=== PATIENT | female | born 1965 | race Caucasian/White ===

== ENCOUNTER 2020-03-30 20:34 | Emergency (ER) | payer OTHER ==
[~2020-03-30] VITALS: Ht 154.9 cm; Wt 81.7 kg
--- NOTE | ~2020-03-30 | EKG ---
[facility] [place] [address] ELECTROCARDIOGRAM REPORT Name: SARAH AWAD Room #: PRE M.R.#: [id number] Admission: Attend Phys: Discharge: Date of : 69 Report #: [id number] THIS REPORT FOR: cc: Parker Canales MD ~ THIS REPORT FOR: //name// [facility] ED Test Date: 2020-03-30 Test Time: 20:43:44 Pat Name: SARAHBERNIE AWAD Department: Room: Gender: F Adult Literacy Teacher: ALEXUS : 1965 Requested By: Jose Francisco Kern Order Number: [id number] MD: Measurements Intervals [place] Rate: 84 P: 51 [place]: 145 QRS: 41 QRSD: 98 T: 51 QT: 362 QTc: 428 Interpretive Statements Sinus rhythm RSR' in V1 or V2, right VCD or RVH Baseline wander in lead(s) V1 No previous ECG available for comparison [email or web address] By: 42 42 Parker Canales MD /EPI
[2020-03-30] MEDS ORDERED: FLUTICASONE PRO16 GM INH (21:50)
[2020-03-30] MEDS ORDERED: LEVOTHYROXINE125 MCG PO (21:50)
[2020-03-30] MEDS ORDERED: DIETHYLPROPION25 MG PO (21:50)
[2020-03-30 21:54] LABS: ABSOLUTE NEUTROPHILS 4.9 thou/uL (1.4-8.2); BASOPHILS 0.6 % (0.0-2.0); EOSINOPHILS 2.8 % (0.0-3.0); HEMATOCRIT 42.3 % (37.0-47.0); HEMOGLOBIN 14.1 gm/dL (12.0-15.0); LYMPHOCYTES 29.1 % (24.0-44.0); MCH 30.8 pg (26.0-34.0); MCHC 33.4 g/dL (28.0-37.0); MCV 92.3 fL (80.0-100.0); MONOCYTES 6.6 % (1.0-8.0); PLATELET COUNT 244 thou/uL (150-400); POLYS 60.9 % (36.0-66.0); RBC 4.59 mil/uL (4.20-5.00); RDW 13.4 % (10.5-14.5); WBC 8.1 thou/uL (4.0-11.0)
[2020-03-30 21:55] LABS: ANION GAP 8 mmol/L (7-16); BUN 20 mg/dL (7-18); CALCIUM 8.8 mg/dL (8.5-10.1); CHLORIDE 101 mmol/L (98-107); CO2 27 mmol/L (21-32); CREATININE 0.9 mg/dL (0.6-1.0); GLUCOSE 99 mg/dL (74-106); POTASSIUM 4.2 mmol/L (3.5-5.1); SODIUM 136 mmol/L (136-145)
[2020-03-30 22:05] LABS: ALBUMIN 3.6 g/dL (3.4-5.0); MAGNESIUM 2.1 mg/dL (1.8-2.4); SGOT 36 U/L (15-37); SGPT 62 U/L (30-65); TOTAL BILIRUBIN 0.2 mg/dL (0.2-1.0); TOTAL PROTEIN 7.6 g/dL (6.4-8.2); TROPONIN-I <0.06 ng/mL (<0.06)
[2020-03-30] MEDS ORDERED: NAPROSYN500 MG PO (22:48)
[2020-03-30] MEDS ORDERED: NORFLEX100 MG PO (22:48)
[2020-03-30 22:55] VITALS: BP 155/85
== END 2020-03-30 23:04 | disposition home or self-care (01) ==
LOC: ER 20:34
PROVIDERS: Emergency Medicine
DX: U07.1 COVID-19 (principal); M62.830 Muscle spasm of back; Z79.899 Other long term (current) drug therapy